=== PATIENT | male | born 1975 | race Caucasian/White ===

== ENCOUNTER 2017-09-24 18:43 | Emergency (ER) | payer MEDICARE, OTHER ==
[~2017-09-24] VITALS: Ht 200.7 cm; Wt 81.5 kg
[2017-09-24] MEDS ORDERED: HYDROcodone/acetaminophen 10/325mg tab PO ONE (19:25)
[2017-09-24] MEDS ORDERED: ketorolac trometh inj. 60 MG/2 ML VIAL IM ONE (19:25)
[2017-09-24] MEDS ORDERED: IBUP-1984 PO (19:26)
[2017-09-24] MEDS ORDERED: GUAI10SY2 PO (19:26)
[2017-09-24] MEDS ORDERED: HYDR-565 PO (19:26)
[2017-09-24 20:16] VITALS: BP 170/85
== END 2017-09-24 20:17 | disposition home or self-care (01) ==
LOC: ER 18:45
DX: R07.89 Other chest pain (principal); R09.1 Pleurisy
CPT/HCPCS: 71045; 96372; 99284; J1885